=== PATIENT | male | born 1995 | race Caucasian/White ===

== ENCOUNTER 2024-06-02 21:31 | Emergency (ER) | payer BC, SELFPAY ==
[2024-06-02] VITALS (12 sets, daily range): BP systolic 109–150; BP diastolic 56–89; PULSE 57–77; RESP 14–24; TEMP 36.6–37; O2SAT 95–100
--- NOTE | ~2024-06-02 | XR_ITS ---
XR chest 1V portable DATE: 06/02/2024 22:21 INDICATION: Chest pain since yesterday TECHNIQUE: Portable upright AP chest on 06/02/2024 at 2219 hours COMPARISON: None FINDINGS: Normal heart size. No hilar or mediastinal enlargement. No pulmonary infiltrate or consolid ation, pleural effusion or pulmonary vascular congestion or pneumothorax is detected. 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
--- NOTE | 2024-06-02 21:49 | ED_ITS ---
HPI - Chest Pain General Chief Complaint: Upper Respiratory Infection Stated Complaint: chest pain Time Seen by Provider: 06/02/24 21:48 Source: patient Mode of arrival: ambulatory Limitations: no limitations History of Present Illness HPI narrative: 28-year-old male no significant past medical history presents to the ED with a 4 day history of -- fatigue -- generalized weakness One day history of -- anterior chest pain-- substernal in location. No radiation of the pain. Feels like an ache. Patient is a nonsmoker without any family history of coronary artery disease. No history of hypertension / dyslipidemia/ diabetes. -- shortness of breath. No cough or sputum production the patient had an upper respiratory infection 2 weeks ago which resolved. His son tested positive for COVID. Currently the patient does not have any upper respiratory tract symptoms. MD complaint: chest pain Onset (ago): day(s) ( One day) Timing of current episode: constant Prior episodes: No Onset: during rest Pain location: substernal Pain radiation: none Severity: moderate Quality: aching Relieving factors: nothing Exacerbating factors: nothing Associated symptoms: dyspnea Treatment prior to arrival: none Risk Factors Coronary artery disease risk factors: none Thoracic aortic dissection risk factors: none Related Data Allergies Allergy/AdvReac Type Severity Reaction Status Date / Time No Known Allergies Allergy Verified 06/02/24 23:24 Review of Systems 2 Review of Systems: All systems reviewed & are unremarkable except as noted in HPI and below Constitutional: Constitutional: Reports as per HPI and Reports no additional constitutional complaints Eyes: Eyes: Reports as per HPI and Reports no additional eye complaints ENT: Reports system reviewed and no additional complaints, except as documented and Reports as per HPI Cardiovascular: Cardiovascular: Reports as per HPI, Reports no additional cardiovascular complaints and Reports chest pain Respiratory: Respiratory: Reports as per HPI, Reports no additional respiratory complaints and Reports dyspnea Gastrointestinal: Gastrointestinal: Reports as per HPI, Reports no additional gastrointestinal complaints and Reports heartburn Genitourinary: Genitourinary: Reports no additional male genitourinary complaints Musculoskeletal: Musculoskeletal: Reports no additional musculoskeletal complaints and Reports as per HPI Integumentary/Breasts: Skin/Breast: Reports system reviewed and no additional complaints, except as docu and Reports as per HPI Neurologic: Reports system reviewed and no additional complaints, except as documented and Reports as per HPI Psychiatric: Psychiatric: Reports no additional psychiatric complaints and Reports as per HPI Endocrine: Endocrine: Reports no additional endocrine complaints and Reports as per HPI Hematologic/Lymphatic: Hematologic/Lymphatic: Reports no additional hematologic/lymphatic complaints and Reports as per HPI Allergic/Immunologic: Allergic/Immunologic: Reports no additional allergic/immunologic complaints and Reports as per HPI Exam 2 Narrative: Blood pressure 132/76. Oxygen saturation of 100% on room air with the respira Const: General: no acute distress Orientation/consciousness: patient oriented x3 Limitations: no limitations HENMT: Head: normal to inspection Ears: external ears normal F magdy/Nose/Sinus: Normal external nose present Face and sinus: normal facial exam Mouth: Yes Normal oral and palatal mucosa present Throat: posterior oropharynx normal Eyes: Conjunctivae: conjunctivae normal Pupils: Equal, round and reactive pupils present EOM: EOMs intact bilaterally Direct Ophthalmoscopy: no photophobia Neck: Neck: normal visual inspection, no lymphadenopathy and no meningeal signs Chest: Chest palpation & inspection: normal inspection of the chest Resp: Effort & Inspection: normal respiratory effort Auscultation: clear to auscultation bilaterally Other: No chest wall tenderness. Cardio: Rate: regular rate Rhythm: regular rhythm GI: GI Palp: Yes Soft to palpation Auscultation: normal bowel sounds : General: Yes no CVA tenderness Back/Spine/Pelvis: Back: no CVA tenderness Skin: General skin exam: normal color Rashes: no rashes Wounds: no wounds Neuro: General: patient oriented x3, moves all extremities, no meningeal signs, no focal motor deficits and CN's II-XI intact bilaterally Cranial nerves: Yes Nystagmus not present Speech: normal speech Extrem: General: normal to inspection and no clubbing, cyanosis or edema Psych: Mental Status: mental status grossly normal Affect: normal affect Attitude: cooperative Course Course Emergency Course: chest pain-- EKG did not show any Acute findings. Negative troponin. Chest x-ray did not show any infiltrates. Tested positive for group a strep-- will treat with Zithromax transaminitis Vital Signs Vital signs: Vital Signs Oxygen Delivery Room Air 06/02/24 21:31 Temperature 36.6 C 06/02/24 21:35 Pulse Rate 77 06/02/24 22:46 Respiratory Rate 15 06/02/24 22:46 Blood Pressure 123/78 06/02/24 22:45 Pulse Oximetry 96 06/02/24 22:46 Oxygen Delivery Room Air 06/02/24 21:35 MDM - Chest Pain MDM Narrative Medical decision making narrative: chest pain group a strep pharyngitis transaminitis Differential Diagnosis Differential diagnosis: Likely stable angina Lab Data Attestation: I reviewed the patient's lab results. 06/02/24 22:55 06/02/24 22:55 Labs: Lab Results 06/02/24 06/02/24 Range/Units 22:06 22:55 WBC 6.6 (4.8-10.8) K/mm3 RBC 5.36 (4.70-6.10) M/mm3 Hgb 15.3 (14.0-18.0) g/dL Hct 44.9 (40.0-54.0) % MCV 83.8 (78.0-102.0) fL MCH 28.5 (27.0-31.0) pg MCHC 34.1 (32-36) g/dL RDW 12.5 (11.6-14.4) % Plt Count 262 (150-420) K/mm3 MPV 9.9 (8.7-11.0) fl Immature Gran % (Auto) 0.5 H (0.0-0.0) % Neut % (Auto) 63.2 (50.0-70.0) % Lymph % (Auto) 23.5 (18.0-42.0) % [place]ham % (Auto) 11.1 H (2.0-11.0) % Eos % (Auto) 1.2 (1.0-6.0) % Baso % (Auto) 0.5 (0.0-1.0) % Lymph # (Auto) 1.55 (1.10-4.50) K/mm3 Oldham # (Auto) 0.73 (0.10-0.90) K/mm3 Eos # (Auto) 0.08 (0.02-0.50) K/mm3 Baso # (Auto) 0.03 (0.00-0.10) K/mm3 Abs Immat Gran (auto) 0.03 H (0.00-0.00) K/mm3 Absolute Neuts (auto) 4.17 (1.70-7.20) K/mm3 Absolute Nucleated RBC 0.00 (0.00-0.00) K/mm3 Nucleated RBC % 0.0 (0-0.0) % Sodium 140 (136-145) mmol/L Potassium 3.7 (3.5-5.1) mmol/L Chloride 102 (98-108) mmol/L Carbon Dioxide 31 (21-32) mmol/L Anion Gap 7 (4-12) mmol/L BUN 9 (7-18) mg/dL Creatinine 1.20 (0.70-1.30) mg/dL Estim Creat Clear Calc 109 ml/min Estimated GFR > 60 (59 - ) Glucose 93 (70-99) mg/dL Calculated Osmolality 288 (285-295) mOsm/kg Calcium 9.1 (8.5-10.1) mg/dL Total Bilirubin 0.4 (0.00-1.00) mg/dL AST 27 (15-37) U/L ALT 97 H (16-63) U/L Alkaline Phosphatase 127 H (46-116) U/L Troponin I Not Reportable Total Protein 7.7 (6.4-8.2) g/dL Albumin 4.1 (3.4-5.0) g/dL Lipase 45 (16-77) U/L Influenza A (RT-PCR) Negative (Negative) Influenza B (RT-PCR) Negative (Negative) RSV (RT-PCR) Negative (Negative) SARS-CoV-2 RNA (RT-PCR) Negative (Negative) Group A Strep (PCR) Detected A (Negative) Imaging Data Attestation: I personally reviewed and interpreted this imaging study as follows: My impression: chest x-ray revealed prominent bronchovascular markings. No infiltrates noted. ECG Data EKG #1: ECG completion date: 06/02/24 ECG completion time: 21:31 Interpretation: Normal sinus rhythm. Normal axis. No ST elevation noted. Discharge Plan Discharge Clinical Impression: Acute streptococcal pharyngitis, Transaminitis Chest pain Qualifiers: Chest pain type: unspecified Qualified Code(s): R07.9 - Chest pain, unspecified Patient Disposition: Home, Self-Care Condition: Stable Instructions: Antibiotic Form, Strep Throat (ED), Chest Wall Pain (ED) Patient Language: Beninese Prescriptions: New azithromycin [Zithromax] 250 mg tablet 250 mg PO DAILY 4 Days Qty: 4 0RF Rx Instructions: start on day 2 of therapy Follow-up/Referrals: Ray,MICHELLE Johnston [Primary Care Provider] - Time of Disposition: 23:49
--- NOTE | 2024-06-02 22:05 | ECG_ITS ---
Test Date: 2024-06-02 21:31:18 Measurements Intervals [place] Rate: 68 P: 40 W[place]: 179 QRS: 37 QRSD: 101 T: 24 QT: 352 QTc: 376 Interpretive Statements SINUS RHYTHM No previous ECG available for comparison Electronically Signed On 06-05-2024 17:41:46 MECHANICAL RESEARCH ENGINEER by Eris Alonso M.D.
[2024-06-02 22:24] LABS: Influenza A QL RT-PCR Negative (Negative); Influenza B QL RT-PCR Negative (Negative); RSV RNA, RT-PCR Negative (Negative); SARS-CoV-2 RNA PCR Negative (Negative)
[2024-06-02 22:41] LABS: Strep Group A RT-PCR DETECTED (Negative)
[2024-06-02 23:01] LABS: Basophils Absolute Auto 0.03 K/mm3 (0.00-0.10); Basophils Percent Auto 0.5 % (0.0-1.0); Eosinophils Absolute Auto 0.08 K/mm3 (0.02-0.50); Eosinophils Percent Auto 1.2 % (1.0-6.0); Hematocrit 44.9 % (40.0-54.0); Hemoglobin 15.3 g/dL (14.0-18.0); Immature Granulocyte Absolute 0.03 K/mm3 (0.00-0.00); Immature Granulocyte Percent A 0.5 % (0.0-0.0); Lymphocytes Absolute Auto 1.55 K/mm3 (1.10-4.50); Lymphocytes Percent Auto 23.5 % (18.0-42.0); Mean Corpuscular HGB Conc 34.1 g/dL (32-36); Mean Corpuscular Hemoglobin 28.5 pg (27.0-31.0); Mean Corpuscular Volume 83.8 fL (78.0-102.0); Mean Platelet Volume 9.9 fl (8.7-11.0); Monocytes Absolute Auto 0.73 K/mm3 (0.10-0.90); Monocytes Percent Auto 11.1 % (2.0-11.0); Neutrophils Absolute Auto 4.17 K/mm3 (1.70-7.20); Neutrophils Percent Auto 63.2 % (50.0-70.0); Platelet Count Result 262 K/mm3 (150-420); Red Blood Count 5.36 M/mm3 (4.70-6.10); Red Cell Distribution Width 12.5 % (11.6-14.4); White Blood Count 6.6 K/mm3 (4.8-10.8)
[2024-06-02 23:22] LABS: Alanine Aminotransferase 97 U/L (16-63); Albumin Level 4.1 g/dL (3.4-5.0); Alkaline Phosphatase 127 U/L (46-116); Anion Gap 7 mmol/L (4-12); Aspartate Amino Transferase 27 U/L (15-37); Bilirubin,Total 0.4 mg/dL (0.00-1.00); Blood Urea Nitrogen 9 mg/dL (7-18); Calcium 9.1 mg/dL (8.5-10.1); Carbon Dioxide 31 mmol/L (21-32); Chloride 102 mmol/L (98-108); Estimated CRCL calculation 109 ml/min; Estimated Glomerular Filt Rate > 60; Glucose 93 mg/dL (70-99); Lipase 45 U/L (16-77); Osmolality Calculated 288 mOsm/kg (285-295); Potassium 3.7 mmol/L (3.5-5.1); Sodium 140 mmol/L (136-145); Total Protein 7.7 g/dL (6.4-8.2)
[2024-06-02 23:39] LABS: Troponin I 4.2 ng/L (0.00-60.4)
[2024-06-02] MEDS: AZITHROMYCIN 250 MG TABLET 500 MG PO (23:51)
== END 2024-06-02 23:59 | disposition home or self-care (01) ==
PROVIDERS: Emergency Provider Internal Medicine Critical Care Medicine; PCP Physician Assistant
DX: J02.0 Streptococcal pharyngitis (principal); R74.01 Elevation of levels of liver transaminase levels; R07.9 Chest pain, unspecified; Z20.822 Contact with and (suspected) exposure to COVID-19
CPT/HCPCS: 36415; 71045; 80053; 83690; 84484; 85025; 87637; 87651; 93005; 99284; A9270

== ENCOUNTER 2024-12-07 12:50 | Outpatient (CLI) | payer BC, SELFPAY ==
--- NOTE | ~2024-12-07 | US_ITS ---
Testicular ultrasound with doppler. Indication: Epididymitis. Technique: Real-time sonography the scrotum was performed. Color flow Doppler and Doppler spectral an alysis were performed. Findings: The testes are homogeneous in echotexture bilaterally. 2 mm hyperechoic focus present in t he right testis.. The right testis measures 4.0 x 2.2 x 2.5 cm and the left 4.0 x 2.4 x 2.6 cm. There is color-flow seen to both testes. Arterial and venous spectral waveforms are seen in both testes. T here is no sonographic evidence of torsion. 1.2 cm left epididymal head cyst or spermatocele present. No significant abnormality of the right epididymis.. Impression: 2 mm hyperechoic focus in the right testis, nonspecific, possibly focal calcification. 1.2 cm left epididymal head cyst or spermatocele. Reviewed, dictated and finalized at [facility]. Impression: 2 mm hyperechoic focus in the right testis, nonspecific, possibly focal calcifi cation. 1.2 cm left epididymal head cyst or spermatocele.
--- OUTSIDE RECORDS SUMMARY | 2024-12-07 12:53 | XMS_ITS | Clinical Summary ---
Author Organization [facility] Address [address] [place] [address] Phone Care Team Providers Care Linen Room Custodian Name Role Phone Violet Cornejo MD Primary Care Provider Allergies No known active allergies Medications No known medications Social History Tobacco Use Types Packs/Day Years Used Date Smoking Tobacco: Never Alcohol Use Standard Drinks/Week Comments No 0 (1 standard drink = 0.6 oz pur e alcohol) Sex and Gender Information Value Date Recorded Sex Assigned at Not on file Legal Sex Male 11:16 PM CDT Gender Identity Not on file Sexual Orientation Not on file Last Filed Vital Signs Vital Sign Reading Time Taken Comments Blood Pressure 120/54 11/09/2015 1:25 PM CDT Pulse 63 11/09/2015 1:25 PM CDT Temperature 37.4 C (99.3 F) 11/09/2015 1:25 PM CDT Respiratory Rate 15 11/09/2015 1:25 PM CDT Oxygen Saturation 97% 11/09/2015 1:25 PM CDT Inhaled Oxygen Concentration - - Weight 72.6 kg (160 lb) 11/09/2015 1:25 PM CDT Height 185.4 cm (6' 1) 11/09/2015 1:25 PM CDT Body Mass Index 21.11 11/09/2015 1:25 PM CDT Plan of Treatment Not on file Insurance [facility] Care Teams Linen Room Custodian Relationship Specialty Start Date End Date Violet Cornejo MD [address] [place] [address] PCP - General Pediatrics 11/09/15
--- OUTSIDE RECORDS SUMMARY | 2024-12-07 12:53 | XMS_ITS | Data Portability ---
Author Organization [facility] Jarrell Anton Address [address] [place] [address] Care Team Providers Care Service Sprinkler Helper Name Role Phone FOREST BELL Primary Care Provider Assessment No assessment recorded. Plan of Treatment Reminders Order Date Submit Date Provider Last Modified By Organization Details Last Modified Time Details Appointments None record ed. Lab rapid SARS CoV 2 Ag, QL IA, respir atory specim en 2021 022 lexy In-Office Order, Internal Use Only DO Not Attach Compendium DO Not Attach Compendium, Do Not Delete/merge, [id number] 16:18:50 Referral None record ed. Procedures None record ed. Surgeries None record ed. Imaging US, testic le 2024 025 [facility], [address] [place], [address], 17:45:44 Medication Orders azithr omycin 500 mg tablet [facility] [address] [place] [address], [address], 16:32:22 Medrol (Alex) 4 mg tablet s in a dose pack 2021 [facility], [address] [place] [address], [address], 5 16:32:27 imiqui mod 5 % topica l cream packet 2020 021 [facility], [address] [place] [address], [address], 11:49:03 imiqui mod 5 % topica l cream packet 2017 018 [facility], [address] [place] [address], [address], 11:49:03 Bactri m DS 800 mg-160 mg tablet 2017 018 [facility], [address] [place] [address], [address], 17:00:45 Patient TargetsNo targets recorded. Patient Instructions Encounter Date Encounter Id Patient Instructions Last Modified By Organization Details Last Modified Time 01/26/2018 [id number] warts: care instructions jnanney Not available 01/26/2018 16:27:26 02/16/2022 [id number] things to do i f you've been exposed to covid-19 jnanney Not available 02/16/2022 16:18:50 upper respirator y infection (cold): care instructions jnanney Not available 02/16/2022 12:05:29 cont otc pseudophed and claritin jnanney Not available 02/16/2022 12:05:57 12/04/2024 [id number] A healthy lifestyle: care instructions jnanney Not available 12/04/2024 17:28:55 nausea and vomiting: care instructions jnanney Not available 12/04/2024 17:28:55 epididymitis and orchitis: care instructions jnanney Not available 12/04/2024 17:28:55 Reason for Referral None Reported. Results Created Date Observation Date Name Description Value Unit Range Abnormal Flag Note LastModifiedBy Organization Detail LastModifiedTime 02/17/20 22 02/16/2022 rapid SARS CoV 2 Ag, QL IA, respi rator y speci men rapid SARS CoV 2 Ag, QL IA, respiratory specimen negati ve Not Available In-Office Order Internal Use Only DO Not Attach Compendium DO Not Attach Compendium, Do Not Delete/merge, [id number] 02/16/2022 16:14:58 06/03/19 25 06/02/2024 XR, chest No observ ation record ed. [email or web address] [facility] [address] [place], [address], 06/04/2024 09:26:21 Result Notes None recorded. Problems No Known Problems Medical Equipment None Reported. Allergies Allergen ID Allergen Name Allergen Category Reaction Reaction Severity Criticality Documentation Date Start Date Code Code System Note Provider Name and Address Organization Details Recorded Time 291286 minocycli ne medicatio n Not available Not available Not available 01/26/2018 6980 RxNorm Forest Bell PA-C Attn: Svitlana andrews,[address] [facility], [place], [address], [facility] 8 16:26:22 Medications Name Sig Start Date Stop Date Status Note LastModified by Organization Details LastModified Time azithromyci n 250 mg tablet TAKE 1 TABLET BY MOUTH EVERY DAY X4 DAYS 12/04 completed Not Available Not Available Not Available imiquimod 5 % topical cream packet APPLY A THIN LAYER TO THE AFFECTED AREA THEN COVER WITH DUCT TAPE EVERY NIGHT AT BEDTIME 02/16 completed Not Available Not Available Not Available oseltamivir 75 mg capsule 01/26 completed Not Available Not Available Not Available methylpredn isolone 4 mg tablets in a dose pack Take 1 dose pk by oral route. 12/04 completed Not Available Not Available Not Available ketoconazol e 2 % topical cream 01/26 completed Not Available Not Available Not Available Bactrim DS 800 mg-160 mg tablet Take 1 tablet every 12 hours by oral route for 10 days. 06/06 completed Not Available Not Available Not Available azithromyci n 500 mg tablet Take 1 tablet every day by oral route for 3 days. 12/04 completed Not Available Not Available Not Available clindamycin -tretinoin 1.2 %-0.025 % topical gel 01/26 completed Not Available Not Available Not Available clindamycin 1.2 % (1 % base)-benzo yl peroxide 5 % topical gel 01/26 completed Not Available Not Available Not Available Aczone 5 % topical gel 01/26 completed Not Available Not Available Not Available Onexton 1.2 % (1 % base)-3.75 % topical gel with pump 01/26 completed Not Available Not Available Not Available Afluria Qd 2020-21 (36 mos up)(PF)60 mcg (15 mcg x4)/0.5 mL IM syringe ADM 0.5ML IM UTD 06/06 completed Not Available Not Available Not Available Vitals Date Recorded Body height Body mass index (BMI) Body weight Body temperature Oxygen saturation Oxygen saturation in Arterial blood by Pulse oximetry Heart rate Systolic And Diastolic Provider Name and Address Organization Details Last Updated DateTime 1 187.96 cm 25.7 kg/m2 41279.4 7 g 97.3 [degF] 99 % 99 % 56 /min 112/66 mm[Hg] Jenn Mercado MA [facility] 1 17:02:55 Date Recorded Body weight Oxygen saturation Oxygen saturation in Arterial blood by Pulse oximetry Heart rate Body mass index (BMI) Body height Systolic And Diastolic Provider Name and Address Organization Details Last Updated DateTime 5 170023. 65 g 98 % 98 % 86 /min 29.4 kg/m2 187.96 cm 114/71 mm[Hg] Duyen Tucker MA [facility] 5 16:35:09 Date Recorded Body weight Body height Body mass index (BMI) Oxygen saturation Oxygen saturation in Arterial blood by Pulse oximetry Heart rate Systolic And Diastolic Provider Name and Address Organization Details Last Updated DateTime 8 10805.3 7 g 187.96 cm 20.7 kg/m2 97 % 97 % 74 /min 110/66 mm[Hg] Lori Herman MA [facility] 8 15:40:15 Date Recorded Body weight Body temperature Oxygen saturation Oxygen saturation in Arterial blood by Pulse oximetry Heart rate Systolic And Diastolic Provider Name and Address Organization Details Last Updated DateTime 2 49586.5 5 g 97.2 [degF] 98 % 98 % 62 /min 110/68 mm[Hg] Tere lehman MA [facility] 11:50:12 Social History Question Answer Notes LastModified by Organizat ion Details LastModified Time Tobacco Smoking Status Never Smoker Jenn Mercado [place] null, [place] - [place] 06/06/2020 17:00:54 Are You Blind Or Do You Have Difficulty Seeing? No Information not available 02/16/2022 What Is Your Level Of Caffeine Consumption? Moderate Information not available 06/06/2020 How Much Tobacco Do You Chew? None Information not available 06/06/2020 Are You Deaf Or Do You Have Serious Difficulty Hearing? No Information not available 02/16/2022 What Type Of Diet Are You Following? REGULAR Information not available 06/06/2020 Marital Status Single Informati on not available 06/06/2020 What Was The Date Of Your Most Recent Tobacco Screening? 12/04/2024 Information not available 12/04/2024 What Is Your Relationship Status? Single Information not available 12/04/2024 General Stress Level Low Information not available 06/06/2020 On What Date Was Tobacco Cessation Counseling Provided? 12/04/2024 Information not available 12/04/2024 Sex: Male Functional Status Question Answer Note LastModified by Organizat ion Details LastModified Time Do you use any illicit or recreational drugs? No Information not available 02/16/2022 What is your level of alcohol consumption? Occasional Information not available 02/16/2022 Do you or have you ever used smokeless tobacco? Never used smokeless tobacco Information not available 06/06/2020 Are you able to care for yourself? Yes Information not available 02/16/2022 What is your occupation? [employer] Information not available 06/06/2020 Do you or have you ever used e-cigarettes or vape? Never used electronic cigarettes Information not available 06/06/2020 Mental Status Question Answer Note LastModified by Organization D etails LastModified Time Do you feel stressed (tense, restless, nervous, or anxious, or unable to sleep at night)? [id number] [facility] Information not available 02/16/2022 Family History Nothing Reported. Medical History No medical history recorded. Immunizations Vaccine Type Date Status Note Provider Nam e and Address Organization Details Recorded Time Influenza, split virus, trivalent, preservative 3 completed Not Available [facility] 12/04/2024 16:29:47 Influenza, MDCK, quadrivalent, PF 9 completed Not Available [facility] 12/04/2024 16:29:47 Influenza, split virus, quadrivalent, PF 0 completed Not Available [facility] 12/04/2024 16:29:47 COVID-19, mRNA, LNP-S, PF, 30 mcg/0.3 mL dose 1 completed Not Available [facility] 12/04/2024 16:29:47 COVID-19, mRNA, LNP-S, PF, 30 mcg/0.3 mL dose 1 completed Not Available [facility] 12/04/2024 16:29:47 COVID-19, mRNA, LNP-S, PF, 30 mcg/0.3 mL dose 1 completed Not Available [facility] 12/04/2024 16:29:47 Influenza, MDCK, quadrivalent, PF 1 completed Not Available [facility] 12/04/2024 16:29:47 Past Encounters Encounter ID Performer Location Encounter Start Date Encounter Closed Date Diagnosis/Indication Diagnosis SNOMED-CT Code Diagnosis ICD10 Code Diagnosis Note [id number] Sarmad Nunes MD [facility] [address] [place] [address] 01/26/2018 15:05:34 01/26/2018 16:29:38 Cellulitis and abscess of abdominal wall 079761159 L02.211 Verruca vulgaris 3069915 3 B07.8 [id number] Sarmad Nunes MD [facility] [address] [place] [address] 06/06/2020 16:56:26 06/09/2020 15:21:01 Hand wart 512283341 B07.8 [id number] [facility] [address] [place] [address] 02/16/2022 11:29:02 02/16/2022 12:09:59 Upper respiratory infection 65485610 J00 Exposure t o SARS-CoV-2 144876898 Z20.556 [id number] Sarmad Nunes MD [facility] [address] [place] [address] 12/04/2024 16:28:40 12/05/2024 12:05:42 Epididymitis 99949460 N45.1 Nausea 351864212 R11.0 DC prevacid and start pepcid Gastroesop hageal reflux disease without esophagitis 525088580 K21.9 Overweight in adulthood with body mass index of 25 or more but less than 30 126209734 E66.3 Z68.29 Health Concerns Section Related Observation LastModified by Organization Detai ls LastModified Time None Recorded Concern Status LastModified by Organization Details LastModified Time None Recorded Advance Directives Directive None Recorded Payers Insurance Date Sequence Insurance Name Policy Number Policy Ramirez Covered Member ID Ramirez Member ID Guarantor Name 12/04/2024 1 [employer] [id number] Mario Dueñas [id number] Mic Dueñas 12/04/2024 1 [employer] [id number] Mic Dueñas [id number] Mic Dueñas Notes Date Note Type Note Provider Name and Address Organization Details Recorded Time 01/26/2018 text/html pt with no sig p mh presents with painful erythematous cyst on lower R abdomen. also has raised wart on right antecubital fossa wants it taken off. Forest Bell PA-C Attn: Accounting,[address] [facility], [place], [address], [facility] 01/26/2018 16:28:57 06/06/2020 text/html left hand with multiple warts... Forest Bell PA-C Attn: [address] [facility], [place], [address], [facility] 06/06/2020 17:16:45 02/16/2022 text/html cough, runny nos e ,no fever...had GI symptoms awhile back...otc stuff not helping...covid negative CONRAD V[place], [place] - [facility] 02/16/2022 16:15:23 12/04/2024 text/html has just discovered a painful knot in left testicle..also having nausea and cramping after he eats..has been a month and has been worse last 2 weeks..no vomiting..no correlation to food at all..otc pain meds do not help..used to have heartburn alot but prevacid has helped.. Forest Bell PA-C Attn: [address] [place], [address], [facility] - [facility] 12/04/2024 17:29:51
== END 2024-12-07 12:51 | disposition home or self-care (01) ==
LOC: CHSIMG 12:51
PROVIDERS: PCP Physician Assistant; Visit Provider Physician Assistant
DX: N45.1 Epididymitis (principal)
CPT/HCPCS: 76870; 93976